=== PATIENT | female | born 2000 | race African-American/Black ===

== ENCOUNTER 2024-07-21 14:32 | Emergency (ER) | payer MEDICAID ==
[~2024-07-21] VITALS: Ht 165.1 cm; Wt 70.0 kg
[2024-07-21 14:37] VITALS: O2SAT 100
[2024-07-21] MEDS ORDERED: TOPUD PO (17:42)
[2024-07-21] MEDS: ACETAMINOPHEN 325MG TABLET PO ONE (18:07)
[2024-07-21 18:14] VITALS: BP 112/61; PULSE 103; RESP 18; TEMP 36.8; O2SAT 100
== END 2024-07-21 18:15 | disposition home or self-care (01) ==
LOC: ER 14:32
DX: O26.892 Other specified pregnancy related conditions, second trimester (principal); O9A.212 Injury, poisoning and certain other consequences of external causes complicating pregnancy, second trimester; S00.83XA Contusion of other part of head, initial encounter; S00.531A Contusion of lip, initial encounter; Z3A.24 24 weeks gestation of pregnancy; Y04.0XXA Assault by unarmed brawl or fight, initial encounter; Y93.89 Activity, other specified; Y92.89 Other specified places as the place of occurrence of the external cause; Y99.8 Other external cause status
CPT/HCPCS: 99283